=== PATIENT | male | born 1985 | race Asian ===

== ENCOUNTER 2018-01-11 08:16 | Day surgery (SDC) | payer MEDICARE, MEDICAID ==
[~2018-01-11] VITALS: Ht 157.5 cm; Wt 70.9 kg
[2018-01-11] MEDS ORDERED: normal saline 1000ml 1,000 ML IV PRN (08:40)
[2018-01-11 09:06] LABS: BASOPHILS # (AUTO) 0.1 X10'3 (0-0.2); BASOPHILS % (AUTO) 1.2 % (0-1); EOSINOPHILS # (AUTO) 0.5 X10'3 (0-0.9); EOSINOPHILS % (AUTO) 8.5 % (0-6); HEMATOCRIT 40.1 % (42.0-52.0); HEMOGLOBIN 13.3 g/dl (14.0-17.9); LYMPHOCYTES # (AUTO) 1.6 X10'3 (1.1-4.8); LYMPHOCYTES % (AUTO) 24.1 % (21-51); MEAN CORPUSCULAR HEMOGLOBIN 29.5 PG (27.0-31.0); MEAN CORPUSCULAR HGB CONC 33.1 % (33.0-36.5); MEAN CORPUSCULAR VOLUME 89.1 FL (78-98); MEAN PLATELET VOLUME 7.9 FL (7.4-10.4); MONOCYTES # (AUTO) 0.8 X10'3 (0-0.9); NEUTROPHILS # (AUTO) 3.5 X10'3 (1.8-7.7); NEUTROPHILS % (AUTO) 54.2 % (42-75); PLATELET COUNT 206 X10'3 (140-440); RED CELL DISTRIBUTION WIDTH 13.2 % (11.5-14.5); WHITE BLOOD COUNT 6.5 X10'3 (4.5-11.0)
[2018-01-11 09:15] LABS: ANION GAP 10 (8-16); BLOOD UREA NITROGEN 68 MG/DL (7-18); BUN/CREATININE RATIO 6.7 (5.4-32.0); CHLORIDE 94 MMOL/L (99-107); CREATININE 10.21 MG/DL (0.60-1.10); GLUCOSE 113 MG/DL (70-104); POTASSIUM 5.5 MMOL/L (3.5-5.1); PROTHROMBIN TIME 10.1 SECONDS (9.0-12.0); SODIUM 132 MMOL/L (135-145); TOTAL CARBON DIOXIDE 28.3 MMOL/L (24-32); eGFR 6 ML/MIN
[2018-01-11 09:29] VITALS: BP 136/79
[2018-01-11] MEDS ORDERED: FURO40TA4 PO (09:48)
[2018-01-11] MEDS ORDERED: HYDR-4070 PO (09:48)
[2018-01-11] MEDS ORDERED: PHO667C PO (09:48)
[2018-01-11] MEDS ORDERED: CLON-529 PO (09:48)
[2018-01-11] MEDS ORDERED: normal saline 1000ml 1,000 ML IV SCH (11:24)
[2018-01-11] MEDS ORDERED: LIDOcaine 1%/PF 5ML 10 MG/ML VIAL SQ ONE (11:25)
[2018-01-11] MEDS ORDERED: fentaNYL/PF 50MCG/1 ML 2ML syringe IV PRN (11:25)
[2018-01-11] MEDS ORDERED: midazolam 2 mg/2 ml injection IV PRN (11:25)
[2018-01-11] MEDS ORDERED: hydrALAZINE 20mg/ml inj. IV ONE (12:40)
[2018-01-11 13:30] VITALS: BP 128/74
[2018-01-11 13:45] VITALS: BP 142/79
[2018-01-11 14:00] VITALS: BP 129/69
[2018-01-11 14:14] VITALS: BP 129/73
== END 2018-01-11 14:25 | disposition home or self-care (01) ==
LOC: SSTAY O 08:16
PROVIDERS: ATTEND Radiology Diagnostic Radiology
DX: T82.858A Stenosis of other vascular prosthetic devices, implants and grafts, initial encounter (principal); Y83.8 Other surgical procedures as the cause of abnormal reaction of the patient, or of later complication, without mention of misadventure at the time of the procedure; Y92.89 Other specified places as the place of occurrence of the external cause; I12.9 Hypertensive chronic kidney disease with stage 1 through stage 4 chronic kidney disease, or unspecified chronic kidney disease; E11.22 Type 2 diabetes mellitus with diabetic chronic kidney disease; N18.9 Chronic kidney disease, unspecified; Z99.2 Dependence on renal dialysis; Z79.899 Other long term (current) drug therapy; Z84.1 Family history of disorders of kidney and ureter
CPT/HCPCS: 36415; 36902; 80048; 82948; 85025; 85610; 99152; 99153; C1725; C1769; C1894; J0360; J1644; J2001; J2250; J3010; J7030; Q9967; A4620